=== PATIENT | female | born 1970 ===

== ENCOUNTER 2020-09-02 09:37 | Outpatient (CLI) | payer OTHER ==
[~2020-09-02 09:37] MED LIST: FIORINAL 50-321 EACH; HYZAAR 50-12.1 UDTAB; MECLIZINE HCL25 MG; SYNTHROID200 MCG
== END 2020-09-02 09:42 | disposition home or self-care (01) ==
LOC: SONOGRAMA 09:37
PROVIDERS: ATTEND Pathology Anatomic Pathology & Clinical Pathology
DX: D34 Benign neoplasm of thyroid gland (principal); E04.8 Other specified nontoxic goiter; E04.1 Nontoxic single thyroid nodule

== ENCOUNTER 2024-07-25 07:18 | Outpatient (CLI) | payer OTHER | END 2024-07-25 07:19 | disposition home or self-care (01) | LOC: NUCLEAR 07:18 | PROVIDERS: ATTEND Internal Medicine Pulmonary Disease | DX: R91.8 Other nonspecific abnormal finding of lung field (principal) | CPT/HCPCS: 78815; A9552 ==